=== PATIENT | female | born 1995 | race Caucasian/White ===

== ENCOUNTER 2017-01-03 11:18 | Emergency (ER) | payer MEDICAID ==
[~2017-01-03] VITALS: Ht 157.5 cm; Wt 82.5 kg
[~2017-01-03 11:18] MED LIST: ALBUAER3 INH; NITR1CAP36 PO; ONDA4TAB7 SL; PREN1CAP7 PO
[2017-01-03 11:20] VITALS: BP 147/82; PULSE 120; RESP 20; TEMP 98.6; O2SAT 98
--- NOTE | 2017-01-03 11:43 | PD ---
HPI Chief Complaint: Cold / Flu Symptoms Time Seen by Provider: 11:43 Travel History International Travel<30 days: No Contact w/Intl Traveler<30days: No Traveled to known affect area: No History of Present Illness HPI 21-year-old female, 18 weeks , presents to the emergency department with complaint of cough, nasal congestion, sore throat, body aches, headache since yesterday. She reports subjective fever but has not taken her temperature and cannot verify a MAXIMUM TEMPERATURE. She denies abdominal pain , cramping, vaginal bleeding. Reports nausea without vomiting. Reports coughing up phlegm. Denies hemoptysis. Has history of asthma and had used her inhaler the other day before her illness. She has not used her inhaler during time of illness. Denies chest tightness, chest pain, shortness of breath, wheezing. Reports burning sensation in her throat and painful swallowing. Denies lump in throat, difficulty swallowing, unusual drooling. Has taken Tylenol with good relief of headache. Has not taken any other medications or tried any other treatments to alleviate her symptoms. 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 Allergies to amoxicillin, penicillin, red dyes, sulfa. No other modifying factors or associated signs and symptoms. PFSH Past Medical History Hx Anticoagulant Therapy: No Cardiovascular Problems: No Chemotherapy: No Cerebrovascular Accident: No Diabetes: Yes (HYPOGLYCEMIA) Respiratory: Yes (ASTHMA) ?: LMP: 18 WEEKS PREGNAT Past Surgical History Hysterectomy: Yes (HEART MURMUR) Social History Tobacco Use: No Allergies-Medications (Allergen,Severity, Reaction): Coded Allergies: Amoxicillin (Verified Allergy, Unknown, 01/03/17) Penicillin (Verified Allergy, Unknown, 01/03/17) Red Dyes - Various (Verified Allergy, Unknown, 01/03/17) Sulfa (Verified Allergy, Unknown, 01/03/17) Reported Meds & Prescriptions Reported Meds & Active Scripts Active Nitrofurantoin Macrocrystal 100 Mg Cap 100 Mg PO BID Proair Hfa 8.5 GM Inh (Albuterol Sulfate) 90 Mcg/Act Aer 2 Puff INH Q4-6H PRN 108 mcg/actuation Ondansetron Odt 4 Mg Tab 4 Mg SL Q8HR PRN Citranatal [place] ( W/O Vit A W/ Fe Fumar) 27-1-260 Mg Cap 1 Cap PO DAILY Review of Systems Except as stated in HPI: all other systems reviewed are Neg Physical Exam Narrative GENERAL: Well-nourished, well-developed female patient, in no acute distress; afebrile, nontoxic-appearing SKIN: Warm and dry. No rash. HEAD: Atraumatic. Normocephalic. EYES: Pupils equal and round at 3 mm with brisk reaction. No scleral icterus. No injection or drainage. PERRLA. ENT: Mucosa pink and moist. No erythema or exudates. No uvular edema. No uvular , palatal, or tonsillar deviation. Airway patent. EARS: Bilateral pinnae and external canals appear within normal limits. Bilateral tympanic membranes without erythema, dullness or perforation. NECK: Trachea midline. No lymphadenopathy. CARDIOVASCULAR: Tachycardic rate and rhythm in low 120's. No murmur appreciated. RESPIRATORY: No accessory muscle use. Clear to auscultation. Breath sounds equal bilaterally. No retractions or tachypnea. GASTROINTESTINAL: Abdomen soft, non-tender, nondistended. Hepatic and splenic margins not palpable. Bowel sounds are active 4 quadrants. MUSCULOSKELETAL: No obvious deformities. No clubbing. No cyanosis. No edema. NEUROLOGICAL: Awake and alert. Oriented 3. No obvious cranial nerve deficits. Motor grossly within normal limits. Normal speech. Moves all extremities. 5/5 strength to all extremities. PSYCHIATRIC: Appropriate mood and affect; insight and judgment normal. Data Data Last Documented VS Vital Signs Date Time Temp Pulse Resp B/P Pulse Ox O2 Delivery O2 Flow Rate FiO2 01/03/17 11:20 98.6 120 20 147/82 98 Room Air Orders Group A Rapid Strep Screen (01/03/17 11:43) Influenzae A/B Antigen (01/03/17 11:43) Acetaminophen (Tylenol) (01/03/17 11:45) MDM Medical Decision Making Medical Screen Exam Complete: Yes Emergency Medical Condition: Yes Medical Record Reviewed: Yes Differential Diagnosis Influenza, pneumonia, upper respiratory infection, bronchitis Narrative Course 21-year-old female that is 18 weeks with complaint of cold/flu symptoms since yesterday. She is afebrile and nontoxic-appearing. She has no complaints of abdominal pain, cramping, vaginal bleeding. Patient's heart rate is in the 120s. Patient denies chest pain, shortness of breath. I will give the patient a few minutes to rest and relax in the ER room and see if a heart rate decreases. Tylenol ordered. Influenza and rapid strep ordered. 1205: On reexamination I checked the patient's heart rate and the heart rate continues to be 124 bpm. I spoke with Dr. Cherry, my attending physician, and she agrees the patient needs to be transferred to a medical bed for further treatment and evaluation. I gave report to Dr. Cherry and she will assume patient care at this time. Patient transferred to medical bed. See Dr. Cherry noted for final disposition. Jackelyn James [facility] Jan 03, 2017 11:43
[2017-01-03] MEDS ORDERED: ACETAMINOPHEN 325 MG TAB PO ONE (11:45)
[2017-01-03 12:17] VITALS: BP 115/77; PULSE 98; RESP 17; O2SAT 99
--- NOTE | 2017-01-03 12:24 | PD ---
Physical Exam Date Seen by Provider: Jan 03, 2017 Time Seen by Provider: 12:23 Narrative GENERAL: This is a well-nourished, well-developed patient, in no apparent distress. SKIN: No rashes, ecchymoses or lesions. Warm and dry. HEAD: Atraumatic. Normocephalic. EYES: PERRL, EOMI, no discharge or injection. No scleral icterus. EARS: Clear NOSE: Nasal turbinates appear normal. THROAT: Mucosa pink and moist. Airway patent. NECK: Trachea midline. supple, moves head freely. LUNGS: Clear to auscultation. CV: Regular in rhythm. Patient is not tachycardic. ABDOMEN: Soft nontender. Gravid uterus. EXT: No clubbing cyanosis or edema. No calf tenderness. No Homans. Data Data Last Documented VS Vital Signs Date Time Temp Pulse Resp B/P Pulse Ox O2 Delivery O2 Flow Rate FiO2 01/03/17 12:17 98 17 115/77 99 Room Air 01/03/17 11:20 98.6 Orders Group A Rapid Strep Screen (01/03/17 11:43) Influenzae A/B Antigen (01/03/17 11:43) Acetaminophen (Tylenol) (01/03/17 11:45) Strep Culture (Group A) (01/03/17 11:45) MDM Medical Record Reviewed: Yes Supervised Visit with ADRIANA: Yes Interpretation(s) Influenza: Negative Rapid strep: Negative Differential Diagnosis Differential diagnoses: Pneumonia, influenza, bronchitis, asthma, URI, strep throat Narrative Course The patient is resting comfortable in the examination room. Her vital signs here in the delta pod are normal. She is not tachycardic, hypoxic or having any changes in blood pressure. The patient denies having any active shortness of breath currently. The influenza and rapid strep are negative. The patient's resting comfortable. She is not tachycardic or short of breath here during my evaluation. This is URI, , asthma Diagnosis Primary Impression: Upper respiratory tract infection Qualified Code: J06.9 - Viral upper respiratory tract infection Additional Impressions: Qualified Code: Z3A.18 - 18 weeks gestation of Asthma Qualified Code: J45.20 - Mild intermittent asthma without complication Patient Instructions: General Instructions Departure Forms: Tests/Procedures, Work Release Special Instructions: No work 2-3 days. Additional Instruction: Rest. Increase fluids. Tylenol. Continue to use her albuterol inhaler 2 puffs every 4-6 hours.. Followup with your Dr. Thursday. Return to the ER for any problems. Med/Other Pt SpecificInfo: No Change to Meds Disposition: 01 DISCHARGE HOME Condition: Stable Dereck Alexis Jan 03, 2017 12:24
[2017-01-03 13:10] VITALS: BP 116/77; TEMP 98.1
[2017-03-26] MEDS ORDERED: NITR50CA27 PO (08:56)
== END 2017-01-03 13:10 | disposition home or self-care (01) ==
LOC: NEPD 11:18
DX: O99.512 Diseases of the respiratory system complicating pregnancy, second trimester (principal); E11.649 Type 2 diabetes mellitus with hypoglycemia without coma; J45.909 Unspecified asthma, uncomplicated; J06.9 Acute upper respiratory infection, unspecified; Z3A.18 18 weeks gestation of pregnancy
CPT/HCPCS: 87081; 87804; 87880; 99284

== ENCOUNTER → 2017-02-02 | Outpatient (CLI) | payer MEDICAID ==
[~2017-02-02] MED LIST changes: -ALBUAER3 INH; +MACR100C2 PO; -NITR1CAP36 PO; +NITR50CA27 PO
== END ==
LOC: HPND 08:58
PROVIDERS: ATTEND Obstetrics & Gynecology
DX: O35.8XX0 Maternal care for other (suspected) fetal abnormality and damage, not applicable or unspecified (principal); O44.22 Partial placenta previa NOS or without hemorrhage, second trimester; O99.212 Obesity complicating pregnancy, second trimester; Z3A.23 23 weeks gestation of pregnancy
CPT/HCPCS: 76811; 76817

== ENCOUNTER 2017-02-23 09:47 | Inpatient (IN) | payer MEDICAID ==
[2017-02-23] VITALS (8 sets, daily range): BP systolic 120–135; BP diastolic 64–74; PULSE 101–103; RESP 18–20; TEMP 97.7–100.3
[~2017-02-23] VITALS: Ht 157.5 cm; Wt 83.5 kg
[~2017-02-23 09:47] MED LIST changes: -MACR100C2 PO; -NITR50CA27 PO; -ONDA4TAB7 SL
--- NOTE | 2017-02-23 10:18 | PD ---
HPI Chief Complaint abdominal pain Date Seen: February 23, 2017 Time Seen: 10:10 Travel History International Travel<30 Days: No Contact w/Intl Traveler<30Days: No Known Affected Area: No History of Present Illness HPI Patient is a 25-year-old at 26 weeks and 1 day who presents with 1 day of periumbilical pain that radiates to her back. Patient reports that her pain started yesterday and became progressively worse. She was unable to sleep last night as result of the pain. She presents today with sharp, stabbing periumbilical pain that radiates to her right back. She describes it as a 7-8 out of 10. She endorses movement. She denies any leakage of fluid, contractions, vaginal bleeding, trauma. [facility]. HILTON from 15 week ultrasound. Last ultrasound was about 3 weeks ago showed a venous sinus clot over the cervix but otherwise reassuring. She does report that her abdominal pain is making her feel a bit nauseous. But she denies any vomiting. She denies any dysuria, but reports increased duration of her urination. She denies any fevers but endorses chills. She denies any headache, visual changes, swelling, chest pain, shortness of breath. Para: 0 : 1 History Past Medical History Narrative Medical Patient reports a history of heart murmur and asthma. Obstetric History Obstetric History Patient reports that this is her first . Past Surgical History Narrative Surgical Patient reports having stitches in her face. Family History Narrative Family History Patient reports a family history of kidney problems are problems on her mom's side. Social History Narrative Social History Patient reports living at home with her boyfriend. Alcohol Use: No Tobacco Use: No Substance Abuse: No Allergies-Medications (Allergen,Severity, Reaction): Coded Allergies: Amoxicillin (Verified Allergy, Intermediate, rash, 02/04/17) Penicillin (Verified Allergy, Intermediate, rash, 02/04/17) Red Dyes - Various (Verified Allergy, Intermediate, itching, 02/04/17) Sulfa (Verified Allergy, Intermediate, rash, 02/04/17) Latex (Verified Allergy, Mild, rash, 02/04/17) Home Meds Active Scripts W/O Vit A W/ Fe Fumar (Citranatal [place])27-1-260 Mg Cap1 Cap PO DAILY #90 CAP Ref 0 Prov:Kirill Wise MD 12/10/16 Narrative Medication Patient reports taking albuterol once to twice per week. Review of Systems General / Constitutional: Chills, No: Fever Eyes: No: Blurred Vision, Visual changes HENT: No: Headaches Cardiovascular: No: Chest Pain or Discomfort Respiratory: No: Short of Breath Gastrointestinal: Nausea, Abdominal Pain, No: Vomiting Genitourinary: No: Dysuria Musculoskeletal: No: Edema Physical Exam Borderline tachycardic with a pulse around 100, but otherwise vitals within normal limits Narrative GENERAL: Well-nourished, well-developed patient. SKIN: Warm and dry. HEAD: Normocephalic and atraumatic. EYES: No scleral icterus. No injection or drainage. ENT: No nasal drainage noted. Mucous membranes pink. Airway patent. NECK: Supple, trachea midline. No JVD. CARDIOVASCULAR: Regular rate and rhythm with a ii-iii/vi systolic murmur. No gallops or rubs. RESPIRATORY: Breath sounds equal bilaterally. No accessory muscle use. ABDOMEN/GI: Abdomen soft, non-tender, bowel sounds present, no rebound, no guarding Gravid to [28] weeks size GENITOURINARY: External Genitalia: intact and normal in appearance Cervix: Posterior Dilatation: Closed Effacement: 0 Station: -3 Membranes: [intact] Uterine Contractions: none FHT's: Category: Category 1 Baseline: 150 Reactive: reactive Variability: Moderate Decels: none EXTREMITIES: No cyanosis or edema. BACK: Nontender without obvious deformity. + right-sided CVA tenderness. NEUROLOGICAL: Awake and alert. Motor and sensory grossly within normal limits. Five out of 5 muscle strength in all muscle groups. Normal speech. Data Data Vital Signs Reviewed: Yes MDM Plan Patient is a 25-year-old at 26 weeks and 1 day who presents with 1 day of periumbilical pain that radiates to her back. 1. Abdominal pain, back pain, borderline tachycardic but afebrile with positive right-sided CVA tenderness UA remarkable for small occult blood, positive urine nitrate, small leukocyte esterase, 5 RBCs, 7 WBCs, many bacteria. Culture indicated. Dirty UA along with right-sided CVA tenderness concerning for pyelonephritis. Will admit for IV antibiotics. Given many allergies, will treat with Gentamicin and Azithromycin. Plan to discharge on Macrobid for 7 days and Macrodantin qd for the rest of . Maintenance fluids with LR IV heart tracing reassuring No contractions noted on tocometry Will follow urine culture Encourage by mouth hydration Diagnosis Diagnosis: Primary Impression: Pyelonephritis Additional Impression: Pyelonephritis affecting Shaq Lindsay MD R1 February 23, 2017 10:18
[2017-02-23 10:51] LABS: BACTERIA, URINE MANY /hpf; BLOOD, URINE SMALL (NEG); COMMENT (UR) CULTURE INDICATED; CULTURE IF INDICATED CULTURE INDICATED; GLUCOSE,URINE NEG (NEG); KETONE, URINE NEG (NEG); PH, URINE 6.5 (5.0-8.5); URINE COLOR YELLOW (YELLW/STRAW)
[2017-02-23 10:53] LABS: NITRITE,URINE POS (NEG)
--- NOTE | 2017-02-23 11:10 | PD ---
History of Present Illness Date Seen: February 23, 2017 History of Present Illness The patient is 21-year-old white female at 26 weeks' gestation who is [facility], who presents combining of abdominal pain in the right back pain for approximately 24 hours, denies bleeding or leakage of fluid or contractions. heart rate tracing is within normal limits and no contractions noted. On exam patient has moderate right CVA tenderness, her cervix is closed and high, urinalysis showed positive nitrites and many bacteria and culture is indicated and is pending. Impression-- pyelonephritis at 26 weeks Plan-IV antibiotics until CVA tenderness is improved, and afebrile greater than 24 hours, and after discharge will discharge home on Macrobid for chronic suppression remainder of her Patient seen and examined with the family medicine residents and agree with their evaluation and plan Ranjith Garcia II, MD February 23, 2017 11:10
[2017-02-23] MEDS: LACTATED RINGER'S 1000 ML INJ 1,000 ML IV SCH ×2 (11:30→18:30)
[2017-02-23] MEDS ORDERED: ACETAMINOPHEN 325 MG TAB PO PRN (11:45)
[2017-02-23] MEDS ORDERED: IBUPROFEN 600 MG TAB PO PRN (11:45)
[2017-02-23] MEDS ORDERED: ONDANSETRON HCL 4 MG/2 ML VIAL IV PUSH PRN (11:45)
[2017-02-23] MEDS ORDERED: oxyCODONE/ACETAMINOPHEN 5 MG/325 MG TAB PO PRN (11:45)
--- NOTE | 2017-02-23 11:48 | HHI.HP ---
History & Physical H&P HPI HPI Chief Complaint abdominal pain Date Seen: February 23, 2017 Time Seen: 10:10 Travel History International Travel<30 Days: No Contact w/Intl Traveler<30Days: No Known Affected Area: No History of Present Illness HPI Patient is a 25-year-old at 26 weeks and 1 day who presents with 1 day of periumbilical pain that radiates to her back. Patient reports that her pain started yesterday and became progressively worse. She was unable to sleep last night as result of the pain. She presents today with sharp, stabbing periumbilical pain that radiates to her right back. She describes it as a 7-8 out of 10. She endorses movement. She denies any leakage of fluid, contractions, vaginal bleeding, trauma. [facility] with Se[facility] Palacios. HILTON from 15 week ultrasound. Last ultrasound was about 3 weeks ago showed a venous sinus clot over the cervix but otherwise reassuring. She does report that her abdominal pain is making her feel a bit nauseous. But she denies any vomiting. She denies any dysuria, but reports increased duration of her urination. She denies any fevers but endorses chills. She denies any headache, visual changes, swelling, chest pain, shortness of breath. Para: 0 : 1 History (Limited) History Past Medical History Narrative Medical Patient reports a history of heart murmur and asthma. Obstetric History Obstetric History Patient reports that this is her first . Past Surgical History Narrative Surgical Patient reports having stitches in her face. Family History Narrative Family History Patient reports a family history of kidney problems are problems on her mom's side. Social History Narrative Social History Patient reports living at home with her boyfriend. Alcohol Use: No Tobacco Use: No Substance Abuse: No Allergies-Medications Allergies-Medications (Allergen,Severity, Reaction): Coded Allergies: Amoxicillin (Verified Allergy, Intermediate, rash, 02/04/17) Penicillin (Verified Allergy, Intermediate, rash, 02/04/17) Red Dyes - Various (Verified Allergy, Intermediate, itching, 02/04/17) Sulfa (Verified Allergy, Intermediate, rash, 02/04/17) Latex (Verified Allergy, Mild, rash, 02/04/17) Home Meds Active Scripts W/O Vit A W/ Fe Fumar (Citranatal [place])27-1-260 Mg Cap1 Cap PO DAILY #90 CAP Ref 0 Prov:Kirill Wise MD 12/10/16 Narrative Medication Patient reports taking albuterol once to twice per week. ROS Review of Systems General / Constitutional: Chills, No: Fever Eyes: No: Blurred Vision, Visual changes HENT: No: Headaches Cardiovascular: No: Chest Pain or Discomfort Respiratory: No: Short of Breath Gastrointestinal: Nausea, Abdominal Pain, No: Vomiting Genitourinary: No: Dysuria Musculoskeletal: No: Edema Physical Exam Physical Exam Borderline tachycardic with a pulse around 100, but otherwise vitals within normal limits Narrative GENERAL: Well-nourished, well-developed patient. SKIN: Warm and dry. HEAD: Normocephalic and atraumatic. EYES: No scleral icterus. No injection or drainage. ENT: No nasal drainage noted. Mucous membranes pink. Airway patent. NECK: Supple, trachea midline. No JVD. CARDIOVASCULAR: Regular rate and rhythm with a ii-iii/vi systolic murmur. No gallops or rubs. RESPIRATORY: Breath sounds equal bilaterally. No accessory muscle use. ABDOMEN/GI: Abdomen soft, non-tender, bowel sounds present, no rebound, no guarding Gravid to [28] weeks size GENITOURINARY: External Genitalia: intact and normal in appearance Cervix: Posterior Dilatation: Closed Effacement: 0 Station: -3 Membranes: [intact] Uterine Contractions: none FHT's: Category: Category 1 Baseline: 150 Reactive: reactive Variability: Moderate Decels: none EXTREMITIES: No cyanosis or edema. BACK: Nontender without obvious deformity. + right-sided CVA tenderness. NEUROLOGICAL: Awake and alert. Motor and sensory grossly within normal limits. Five out of 5 muscle strength in all muscle groups. Normal speech. Data Data Data Vital Signs Reviewed: Yes MDM MDM Plan Patient is a 25-year-old at 26 weeks and 1 day who presents with 1 day of periumbilical pain that radiates to her back. 1. Abdominal pain, back pain, borderline tachycardic but afebrile with positive right-sided CVA tenderness UA remarkable for small occult blood, positive urine nitrate, small leukocyte esterase, 5 RBCs, 7 WBCs, many bacteria. Culture indicated. Dirty UA along with right-sided CVA tenderness concerning for pyelonephritis. Will admit for IV antibiotics. Given many allergies, will treat with Aztreonam. Discussed with Pharmacy. Plan to discharge on Macrobid for 7 days and Macrodantin qd for the rest of . Aztreonam 1g IV q8h Monitor vital signs Maintenance fluids with LR IV heart tracing reassuring. Continue to monitor intermittently No contractions noted on tocometry. Continue to monitor intermittently Will follow urine culture Encourage by mouth hydration Pain control as below: * Tylenol 650 mg by mouth every 4 hours when necessary for pain 1-2 * Motrin 600 mg by mouth every 6 hours when necessary for abdominal pain * Percocet 5-325 mg 1 tab by mouth every 4 hours when necessary for pain 3-5 * Percocet 5-325 mg 2 tab by mouth every 4 hours when necessary for pain 6-10 * Fentanyl 50 g IV push every one hours when necessary for breakthrough pain * Zofran 4 mg IV push every 6 hours when necessary for nausea or vomiting CBC, CMP Diagnosis Diagnosis: Primary Impression: Pyelonephritis Additional Impression: Pyelonephritis affecting Shaq Lindsay MD R1 February 23, 2017 11:48 Shaq Lindsay MD R1 February 23, 2017 11:48
[2017-02-23 12:08] LABS: AUTOMATED NEUTROPHIL # 12.4 TH/MM3 (1.8-7.7); BASOPHIL % 0.2 % (0.0-2.0); HEMATOCRIT 32.6 % (35.0-46.0); HEMO FLAGS DIFF FINAL; LYMPH % 5.6 % (9.0-44.0); LYMPHOCYTE # 0.8 TH/MM3 (1.0-4.8); MEAN CELL VOLUME 89.9 FL (80.0-100.0); MEAN CORPUSCULAR HEMOGLOBIN 30.2 PG (27.0-34.0); MEAN CORPUSCULAR HGB CONC 33.7 % (32.0-36.0); MONO % 7.3 % (0.0-8.0); NEUT % 86.9 % (16.0-70.0); PLATELET COUNT 216 TH/MM3 (150-450); RED BLOOD COUNT 3.63 MIL/MM3 (4.00-5.30); RED CELL DISTRIBUTION WIDTH 12.7 % (11.6-17.2); WHITE BLOOD COUNT 14.3 TH/MM3 (4.0-11.0)
[2017-02-23 12:21] LABS: ANION GAP 11 MEQ/L (5-15); AST (GOT) 20 U/L (15-37); BICARBONATE 25.1 MEQ/L (21.0-32.0); BLOOD UREA NITROGEN 6 MG/DL (7-18); CHLORIDE 102 MEQ/L (98-107); GLOMERULAR FILTRATION RATE 83 ML/MIN (>89); POTASSIUM 3.2 MEQ/L (3.5-5.1); SODIUM (NA) 138 MEQ/L (136-145)
[2017-02-23 12:24] LABS: ALKALINE PHOSPHATASE 142 U/L (45-117); ALT (GPT) 28 U/L (10-53); TOTAL BILIRUBIN ADULT 0.6 MG/DL (0.2-1.0)
[2017-02-23] MEDS ORDERED: AZITHROMYCIN INJ 500 MG in SODIUM CHLOR 0.9% 250 ML INJ 250 ML IV SCH (13:00)
[2017-02-23] MEDS ORDERED: GENTAMICIN INJ 120 MG in SODIUM CHLORIDE 0.9% INJ 100 ML IV ONE (13:00)
[2017-02-23] MEDS: AZTREONAM INJ 1,000 MG in SODIUM CHLORIDE 0.9% INJ 100 ML IV SCH ×2 (14:50→23:00)
[2017-02-23] MEDS ORDERED: GENTAMICIN INJ 80 MG in SODIUM CHLORIDE 0.9% INJ 100 ML IV SCH (21:00)
[2017-02-24] VITALS (11 sets, daily range): BP systolic 117–140; BP diastolic 60–76; PULSE 103–111; RESP 17–18; TEMP 98.3–99
[2017-02-24] MEDS: AZTREONAM INJ 1,000 MG in SODIUM CHLORIDE 0.9% INJ 100 ML IV SCH ×3 (07:30→23:23)
[2017-02-24] MEDS: LACTATED RINGER'S 1000 ML INJ 1,000 ML IV SCH ×2 (07:31→17:21)
--- NOTE | 2017-02-24 09:15 | PD.OB.ANTE ---
Subjective Diagnosis: (1) Pyelonephritis affecting Interval History This patient is 26 weeks intrauterine with pyelonephritis on the right side, she is doing well at this time on the hospital day 2 some improvement in her CVA tenderness, she is on aztreonam for antibiotic coverage urine culture pending at this time recommend another 24 hours after antibiotics prior to discharge on chronic suppression with Macrodantin the rest . Objective Vital Signs Vital Signs Date Time Temp Pulse Resp B/P Pulse Ox O2 Delivery O2 Flow Rate FiO2 02/24/17 07:42 18 02/24/17 07:36 103 131/73 02/23/17 20:00 18 02/23/17 20:00 97.7 02/23/17 19:50 103 126/64 02/23/17 15:58 100.3 20 02/23/17 15:57 102 126/71 02/23/17 12:28 101 135/74 02/23/17 12:27 98.2 20 02/23/17 10:21 98.4 20 02/23/17 10:18 101 120/74 Lab & Micro Results Test 02/23/17 02/23/17 10:10 11:30 Urine Color YELLOW Urine Turbidity HAZY Urine pH 6.5 Urine Specific [place] 1.009 Urine Protein NEG mg/dL Urine Glucose (UA) NEG mg/dL Urine Ketones NEG mg/dL Urine Occult Blood SMALL Urine Nitrite POS Urine Bilirubin NEG Urine Urobilinogen LESS THAN 2.0 MG/DL Urine Leukocyte Esterase SMALL Urine RBC 5 /hpf Urine WBC 7 /hpf Urine Bacteria MANY /hpf Microscopic Urinalysis Comment CULTURE INDICATED White Blood Count 14.3 TH/MM3 Red Blood Count 3.63 MIL/MM3 Hemoglobin 11.0 GM/DL Hematocrit 32.6 % Mean Corpuscular Volume 89.9 FL Mean Corpuscular Hemoglobin 30.2 PG Mean Corpuscular Hemoglobin 33.7 % Concent Red Cell Distribution Width 12.7 % Platelet Count 216 TH/MM3 Mean Platelet Volume 9.4 FL Neutrophils (%) (Auto) 86.9 % Lymphocytes (%) (Auto) 5.6 % Monocytes (%) (Auto) 7.3 % Eosinophils (%) (Auto) 0.0 % Basophils (%) (Auto) 0.2 % Neutrophils # (Auto) 12.4 TH/MM3 Lymphocytes # (Auto) 0.8 TH/MM3 Monocytes # (Auto) 1.0 TH/MM3 Eosinophils # (Auto) 0.0 TH/MM3 Basophils # (Auto) 0.0 TH/MM3 CBC Comment DIFF FINAL Differential Comment Sodium Level 138 MEQ/L Potassium Level 3.2 MEQ/L Chloride Level 102 MEQ/L Carbon Dioxide Level 25.1 MEQ/L Anion Gap 11 MEQ/L Blood Urea Nitrogen 6 MG/DL Creatinine 0.85 MG/DL Estimat Glomerular Filtration 83 ML/MIN Rate Random Glucose 101 MG/DL Calcium Level 8.7 MG/DL Total Bilirubin 0.6 MG/DL Aspartate Amino Transf 20 U/L (AST/SGOT) Alanine Aminotransferase 28 U/L (ALT/SGPT) Alkaline Phosphatase 142 U/L Total Protein 6.3 GM/DL Albumin 2.7 GM/DL Date/Time Procedure Status Source Growth 02/23/17 10:10 Urine Culture Received Urine Clean Catch Pending Physical Exam GENERAL: Well-nourished, well-developed patient. CARDIOVASCULAR: Regular rate and rhythm without murmurs, gallops, or rubs. RESPIRATORY: Breath sounds equal bilaterally. No accessory muscle use. ABDOMEN/GI: Abdomen soft, non-tender. Fundus: [-] GENITOURINARY: External Genitalia: intact and normal in appearance Cervix: [-] Dilatation: [-] Effacement: [-] Station: [-] Presentation: [-] Membranes: [-] Uterine Contractions: [-] FHT's: Category: [-] Baseline: [-] Reactive: [-] Variability: [-] Decels: [-] EXTREMITIES: No cyanosis or edema, non-tender, without signs of DVT. Ranjith Garcia II, MD February 24, 2017 09:15
[2017-02-24] MEDS: oxyCODONE/ACETAMINOPHEN 5 MG/325 MG TAB PO PRN ×2 (14:36→21:09)
[2017-02-25 03:17] VITALS: RESP 18; TEMP 98.2
[2017-02-25 03:18] VITALS: BP 123/70; PULSE 108
[2017-02-25] MEDS: LACTATED RINGER'S 1000 ML INJ 1,000 ML IV SCH (03:20)
[2017-02-25] MEDS: AZTREONAM INJ 1,000 MG in SODIUM CHLORIDE 0.9% INJ 100 ML IV SCH (07:06)
[2017-02-25 08:18] VITALS: BP 132/79; PULSE 115
[2017-02-25] MEDS: oxyCODONE/ACETAMINOPHEN 5 MG/325 MG TAB PO PRN (08:28)
[2017-02-25 08:45] VITALS: PULSE 116
[2017-02-25 08:46] VITALS: TEMP 99.4
[2017-02-25 08:50] VITALS: PULSE 118
--- NOTE | 2017-02-25 09:53 | PD.OB.ANTE ---
Subjective Diagnosis: (1) Pyelonephritis affecting Diagnosis: Principal Interval History Patient afebrile with vital signs stable overnight. Patient denies any new complaints. She reports improvement in her pain and nausea. She denies any fever , chills, dysuria, back pain. Antepartum ROS: Reports: movement normal, Denies: New complaints, Loss of fluid, Vaginal bleeding, Contractions ( Shaq Lindsay MD R1) Objective Vital Signs Vital Signs Date Time Temp Pulse Resp B/P Pulse Ox O2 Delivery O2 Flow Rate FiO2 02/25/17 08:50 118 02/25/17 08:46 99.4 02/25/17 08:45 116 02/25/17 08:18 115 132/79 02/25/17 03:18 108 123/70 02/25/17 03:17 98.2 18 02/24/17 23:25 18 02/24/17 23:23 111 117/60 02/24/17 23:23 98.3 02/24/17 22:22 99.0 02/24/17 22:09 18 02/24/17 20:49 98.4 18 02/24/17 20:41 105 140/76 02/24/17 18:45 17 02/24/17 18:44 108 124/73 02/24/17 14:25 98.9 17 02/24/17 14:23 107 130/74 Lab & Micro Results Date/Time Procedure Status Source Growth 02/23/17 10:10 Urine Culture - Preliminary Resulted Urine Clean Catch Escherichia Coli Gram Negative Juancarlos Physical Exam GENERAL: Well-nourished, well-developed patient. CARDIOVASCULAR: Regular rate and rhythm without murmurs, gallops, or rubs. RESPIRATORY: Breath sounds equal bilaterally. No accessory muscle use. ABDOMEN/GI: Abdomen soft, non-tender. Fundus: Consistent with 26 week gestation FHT's: Category: Category 1 Baseline: 145 Reactive: + Variability: Moderate Decels: None EXTREMITIES: No cyanosis or edema, non-tender, without signs of DVT. (Shaq Lindsay MD R1) Assessment and Plan Problem List: (1) Pyelonephritis affecting Status: Acute Assessment and Plan This patient is a 21-year-old with a 26 weeks intrauterine with pyelonephritis on the right side, she is doing well at this time on the hospital day 3 with improvement in her CVA tenderness. She is on aztreonam for antibiotic coverage. Urine culture grew Escherichia coli, sensitive to aztreonam and nitrofurantoin, and another gram-negative juancarlos pending susceptibilities. Plan to discharge today with Macrobid 100 mg by mouth twice a day for 7 days and then on chronic suppression with Macrodantin 50 mg by mouth daily for the rest . (Shaq Lindsay MD R1) Collaborating MD Comments Patient seen and examined. I reviewed the need for suppression this . (Heather Fong MD) Shqa Lindsay MD R1 February 25, 2017 09:53 Heather Fong MD Mar 12, 2017 07:43
[2017-02-25] MEDS ORDERED: NITR50CA27 PO (10:52)
[2017-02-25] MEDS ORDERED: ONDA4TAB7 SL (10:52)
[2017-02-25] MEDS ORDERED: MACR100C2 PO (10:52)
--- NOTE | 2017-02-25 10:54 | HHI.DCPOC ---
Discharge Care Plan Diagnosis: (1) Pyelonephritis affecting Report Symptoms to Your Doctor -Temperature above 100.5 degrees -Redness, of incision or excessive or foul smelling drainage -Unusual pain or calf pain -Increased vaginal bleeding -Painful or difficulty urinating -Feelings of extreme sadness or anxiety after 2 weeks Goals to Promote Your Health * To prevent worsening of your condition and complications, please take medications as prescribed and follow up with your doctor within 1 week. * To maintain your health at the optimal level, please stay hydrated and eat a balanced diet. Directions to Meet Your Goals Take your medications as prescribed Follow your dietary instruction Follow activity as directed Ensure plenty of rest for recovery Drink fluids for hydration Keep your appointments as scheduled Take your immunizations and boosters as scheduled If your symptoms worsen call your PCP, if no PCP go to Urgent Care Center or Emergency Room Smoking is Dangerous to Your Health. Avoid second hand smoke Call the 24-hour crisis hotline for domestic abuse at Shaq Lindsay MD R1 February 25, 2017 10:54
[2017-03-26] MEDS ORDERED: NITR50CA27 PO (08:56)
== END 2017-02-25 11:29 | disposition home or self-care (01) | DRG 781 ==
LOC: HOBED 09:47 → H2EA 11:24
PROVIDERS: ADMIT Obstetrics & Gynecology Maternal & Fetal Medicine; ATTEND Obstetrics & Gynecology Maternal & Fetal Medicine
DX: O23.02 Infections of kidney in pregnancy, second trimester (principal); B96.20 Unspecified Escherichia coli [E. coli] as the cause of diseases classified elsewhere; Z3A.24 24 weeks gestation of pregnancy; O99.512 Diseases of the respiratory system complicating pregnancy, second trimester; J45.909 Unspecified asthma, uncomplicated
CPT/HCPCS: 80053; 81001; 85025; 87077; 87086; 87186; 99285; J2405; J7120

== ENCOUNTER → 2017-03-10 | Outpatient (CLI) | payer MEDICAID ==
[~2017-03-10] MED LIST changes: +NITR50CA27 PO; +ONDA4TAB7 SL
== END ==
LOC: HPND 09:40
PROVIDERS: ATTEND Obstetrics & Gynecology
DX: O44.43 Low lying placenta NOS or without hemorrhage, third trimester (principal); O99.213 Obesity complicating pregnancy, third trimester; E66.09 Other obesity due to excess calories; Z68.34 Body mass index [BMI] 34.0-34.9, adult; Z3A.28 28 weeks gestation of pregnancy
CPT/HCPCS: 76816; 76817